=== PATIENT | female | born 1960 | race Caucasian/White ===

== ENCOUNTER 2021-10-07 19:30 | Outpatient (CLI) | payer BC | END 2021-10-07 19:31 | disposition home or self-care (01) | LOC: SLEEPLAB 19:30 | PROVIDERS: ATTEND Student in an Organized Health Care Education/Training Program | DX: G47.33 Obstructive sleep apnea (adult) (pediatric) (principal); F32.9 Major depressive disorder, single episode, unspecified; F41.9 Anxiety disorder, unspecified; I10 Essential (primary) hypertension; E66.9 Obesity, unspecified; R06.83 Snoring; G47.10 Hypersomnia, unspecified; G47.00 Insomnia, unspecified | CPT/HCPCS: 95810 ==

== ENCOUNTER 2021-11-11 12:37 | Outpatient (CLI) | payer BC | END 2021-11-11 12:38 | disposition home or self-care (01) | LOC: CT 12:37 | PROVIDERS: ATTEND Student in an Organized Health Care Education/Training Program | DX: N83.8 Other noninflammatory disorders of ovary, fallopian tube and broad ligament (principal); R19.00 Intra-abdominal and pelvic swelling, mass and lump, unspecified site | CPT/HCPCS: 72192 ==

== ENCOUNTER 2022-02-10 09:22 | Outpatient (CLI) | payer BC ==
[2022-02-10 10:43] LABS: #Eosinphils 0.2 10x3/uL (0.0-0.5); #Monocytes 0.4 10x3/uL (0.0-1.1); #Neutrophils 4.2 10x3/uL (1.5-8.4); %Basophils 0.6 % (0.0-2.0); %Eosinophils 2.5 % (0.0-6.0); %Lymphocytes 32.5 % (18.0-47.0); %Monocytes 5.3 % (0.0-10.0); Hemoglobin 12.8 g/dL (12.0-15.5); Mean Corpuscular HGB CONC 34.3 g/dL (32.0-36.0); Mean Corpuscular Hemoglobin 30.5 pg (27.0-33.0); Mean Corpuscular Volume 88.8 fl (81.6-98.3); Mean Platelet Volume 10.1 fl (7.4-10.4); Platelet Count 335 10x3/uL (150-450); White Blood Cell (WBC) Count 7.2 10x3/uL (3.5-10.5)
[2022-02-10 11:15] LABS: Anion Gap 11 mmol/L (10-20); BUN (Urea Nitrogen) 17 mg/dL (9.8-20.1); Calc. Creatinine Clearance 0 mL/min (70-130); Calcium 10.7 mg/dL (7.8-10.44); Carbon Dioxide 25 mmol/L (23-31); Chloride 107 mmol/L (98-107); Estimated GFR 91; Glucose 90 mg/dL (80-115); Potassium 4.8 mmol/L (3.5-5.1); Sodium 138 mmol/L (136-145)
== END 2022-02-10 09:23 | disposition home or self-care (01) ==
LOC: LABBT 09:22
PROVIDERS: ATTEND Specialist
DX: Z01.818 Encounter for other preprocedural examination (principal); C18.1 Malignant neoplasm of appendix
CPT/HCPCS: 80048; 85025; 93005; 93010

== ENCOUNTER 2022-02-11 06:25 | Day surgery (SDC) | payer BC ==
[2022-02-07 12:16] VITALS: BMI 35.4
[2022-02-11] MEDS ORDERED: Lidocaine 1% (PF) 30 ML VIAL ONE (06:45)
[2022-02-11] MEDS ORDERED: Bupivacaine/Epinephrine 0.25% 30 ML VIAL ONE (06:45)
[2022-02-11] MEDS ORDERED: Ketorolac Tromethamine 30 MG/ML VIAL ONE (06:46)
[2022-02-11] MEDS ORDERED: Acetaminophen 500 MG TAB ONE (06:46)
[2022-02-11] MEDS ORDERED: Propofol 500 MG/50 ML VIAL ONE (07:08)
[2022-02-11] MEDS ORDERED: Midazolam HCl 2 mg/2 ml Vial ONE (07:08)
[2022-02-11] MEDS ORDERED: fentaNYL PF 100 MCG/2 ML SYRINGE ONE (07:08)
[2022-02-11] MEDS ORDERED: CEFAZOLIN 2 GM VIAL ONE (08:18)
[2022-02-11] MEDS ORDERED: Sodium Chloride 0.9% 100 ML ONE (08:18)
[2022-02-11] MEDS ORDERED: diphenhydrAMINE 50 MG/ML VIAL ONE (08:23)
[2022-02-11] MEDS ORDERED: PROPOFOL 200 MG/20 ML VIAL ONE (08:23)
== END 2022-02-11 09:53 | disposition home or self-care (01) ==
LOC: SDC 06:25
PROVIDERS: ATTEND Specialist
PROC: 02HV33Z Insertion of Infusion Device into Superior Vena Cava, Percutaneous Approach (ICD-10-PCS; principal; 2022-02-11)
PROC: 0JH60WZ Insertion of Totally Implantable Vascular Access Device into Chest Subcutaneous Tissue and Fascia, Open Approach (ICD-10-PCS; principal; 2022-02-11)
DX: C18.1 Malignant neoplasm of appendix (principal); C79.61 Secondary malignant neoplasm of right ovary; I11.9 Hypertensive heart disease without heart failure; E78.00 Pure hypercholesterolemia, unspecified; M79.7 Fibromyalgia; Z87.891 Personal history of nicotine dependence; Z79.899 Other long term (current) drug therapy; Z88.0 Allergy status to penicillin; Z91.041 Radiographic dye allergy status; Z90.49 Acquired absence of other specified parts of digestive tract
CPT/HCPCS: 71045; C1788; J1200; J1642; J1885; J2001; J2250; J2704; J3490

== ENCOUNTER 2022-02-13 12:30 | Outpatient (CLI) | payer BC | END 2022-02-13 12:31 | disposition home or self-care (01) | LOC: PET 12:30 | PROVIDERS: ATTEND Internal Medicine Hematology & Oncology | DX: C18.1 Malignant neoplasm of appendix (principal) | CPT/HCPCS: 78815; A9552 ==

== ENCOUNTER 2022-05-12 10:29 | Outpatient (CLI) | payer BC | END 2022-05-12 10:30 | disposition home or self-care (01) | LOC: BICMAMMO 10:29 | PROVIDERS: ATTEND Student in an Organized Health Care Education/Training Program | DX: Z12.31 Encounter for screening mammogram for malignant neoplasm of breast (principal); R92.1 Mammographic calcification found on diagnostic imaging of breast; Z85.89 Personal history of malignant neoplasm of other organs and systems | CPT/HCPCS: 77063; 77067 ==

== ENCOUNTER 2022-05-12 11:45 | Outpatient (CLI) | payer BC ==
[~2022-05-12 11:45] MED LIST: GASTROGRAFIN 30 ML BOT ONE; Iopamidol 370 76% 100 ML VIAL ONE
[2022-05-12] MEDS ORDERED: diphenhydrAMINE 25 MG CAP ONE (12:24)
[2022-05-12] MEDS ORDERED: diphenhydrAMINE 50 MG CAP PO SCH (12:30)
== END 2022-05-12 11:46 | disposition home or self-care (01) ==
LOC: CT 11:45
PROVIDERS: ATTEND Internal Medicine Hematology & Oncology
DX: C18.1 Malignant neoplasm of appendix (principal)
CPT/HCPCS: 71260; 74177; 82565; J1642; Q9963; Q9967

== ENCOUNTER 2022-11-03 11:46 | Inpatient (IN) | payer BC ==
[2022-11-03 12:12] LABS: #Basophils 0.1 thou/uL (0.0-0.2); #Eosinphils 0.2 thou/uL (0.0-0.7); #Monocytes 0.9 thou/uL (0.11-0.59); #Neutrophils 8.7 thou/uL (1.40-6.50); %Basophils 0.7 % (0.0-1.0); %Eosinophils 1.4 % (0.0-10.0); %Monocytes 6.5 % (0.0-10.0); Hematocrit 34.9 % (36.0-47.0); Hemoglobin 11.3 g/dL (12.0-16.0); Mean Corpuscular HGB CONC 32.4 g/dL (32.0-36.0); Mean Corpuscular Hemoglobin 31.6 pg (27.0-31.0); Mean Corpuscular Volume 97.5 fl (78.0-98.0); Mean Platelet Volume 9.1 fL (7.4-10.4); Platelet Count 442 10x3/uL (130-400); RBC Distribution Width 12.9 % (11.5-14.5); Red Blood Cell (RBC) Count 3.58 mill/uL (4.20-5.40)
[2022-11-03 12:36] LABS: ALT (SGPT) 15 U/L (8-55); AST (SGOT) 15 U/L (5-34); Albumin 3.8 g/dL (3.4-4.8); Alkaline Phosphatase 107 U/L (40-110); Anion Gap 13 mmol/L (10-20); BUN (Urea Nitrogen) 14 mg/dL (9.8-20.1); Bilirubin, Total 0.3 mg/dL (0.2-1.2); Calc. Creatinine Clearance 0 mL/min (70-130); Carbon Dioxide 27 mmol/L (23-31); Chloride 98 mmol/L (98-107); Estimated GFR 83; Globulin 3.6 g/dL (2.4-3.5); Glucose 102 mg/dL (80-115); Potassium 4.1 mmol/L (3.5-5.1); Protein, Total 7.4 g/dL (5.8-8.1); Sodium 134 mmol/L (136-145)
[2022-11-03 12:41] LABS: Calcium 14.3 mg/dL (7.8-10.44)
[2022-11-03] MEDS ORDERED: traMADol HCl 50 MG TAB PO PRN (14:43)
[2022-11-03] MEDS ORDERED: Dexamethasone 4 mg/ml Vial SLOW IVP SCH (14:45)
[2022-11-03] MEDS ORDERED: Zoledronic Acid 4 MG in Sodium Chloride 0.9% 100 ML IVPB SCH (14:45)
[2022-11-03 17:21] VITALS: BMI 33.7
[2022-11-03] MEDS: Sodium Chloride 0.9% 1,000 ML IV SCH ×2 (18:37→23:34)
[2022-11-03] MEDS: Rosuvastatin 20 MG TAB PO SCH (21:04)
[2022-11-04 06:19] LABS: ALT (SGPT) 13 U/L (8-55); AST (SGOT) 14 U/L (5-34); Albumin 3.5 g/dL (3.4-4.8); Alkaline Phosphatase 96 U/L (40-110); Anion Gap 11 mmol/L (10-20); BUN (Urea Nitrogen) 17 mg/dL (9.8-20.1); Bilirubin, Total 0.2 mg/dL (0.2-1.2); Calc. Creatinine Clearance 95 mL/min (70-130); Carbon Dioxide 23 mmol/L (23-31); Chloride 105 mmol/L (98-107); Estimated GFR 82; Globulin 3.6 g/dL (2.4-3.5); Glucose 146 mg/dL (80-115); Potassium 4.3 mmol/L (3.5-5.1); Protein, Total 7.1 g/dL (5.8-8.1); Sodium 135 mmol/L (136-145)
[2022-11-04 06:23] LABS: Calcium 14.1 mg/dL (7.8-10.44)
[2022-11-04] MEDS: Lisinopril 5 MG TAB PO SCH (08:53)
[2022-11-04] MEDS: Sodium Chloride 0.9% 1,000 ML IV SCH ×3 (08:53→21:29)
[2022-11-04] MEDS: DULoxetine 30 MG CAP PO SCH (08:54)
[2022-11-04] MEDS: Calcitonin,Salmon,Synthetic 400 UNITS/2 ML SC SCH (09:26)
[2022-11-04] MEDS ORDERED: PHOS-NAK 1 PKT PACK PO SCH (17:00)
[2022-11-04 17:27] LABS: Anion Gap 11 mmol/L (10-20); BUN (Urea Nitrogen) 14 mg/dL (9.8-20.1); Calc. Creatinine Clearance 106 mL/min (70-130); Calcium 12.2 mg/dL (7.8-10.44); Carbon Dioxide 23 mmol/L (23-31); Chloride 105 mmol/L (98-107); Estimated GFR 93; Glucose 109 mg/dL (80-115); Potassium 3.9 mmol/L (3.5-5.1); Sodium 135 mmol/L (136-145)
[2022-11-04] MEDS: Rosuvastatin 20 MG TAB PO SCH (20:35)
[2022-11-04] MEDS ORDERED: Famotidine 20 MG TAB PO SCH (21:00)
[2022-11-04 22:31] LABS: Bacteria/HPF None Seen HPF (None Seen); Bilirubin Negative (Negative); Blood, Urine Negative (Negative); Clarity Turbid (Clear); Glucose, Urine (Dipstick) Normal (Negative); Ketone, Urine Negative (Negative); Leukocyte Negative Leu/uL (Negative); Nitrite Negative (Negative); Protein, Urine (Dipstick) Negative (Neg-Trace); RBC/HPF 0-3 HPF (0-3); Specific Gravity, Urine 1.009 (1.002-1.036); Squamous Epithelial 0-3 HPF (0-3); Urobilinogen Normal mg/dL (Less than 2); WBC/HPF 0-3 HPF (0-3); pH, Urine 7.5 (5.0-9.0)
[2022-11-05] MEDS: Sodium Chloride 0.9% 1,000 ML IV SCH (04:16)
[2022-11-05 06:32] LABS: Anion Gap 12 mmol/L (10-20); BUN (Urea Nitrogen) 10 mg/dL (9.8-20.1); Calc. Creatinine Clearance 117 mL/min (70-130); Calcium 10.2 mg/dL (7.8-10.44); Carbon Dioxide 19 mmol/L (23-31); Chloride 110 mmol/L (98-107); Estimated GFR 99; Glucose 91 mg/dL (80-115); Potassium 3.3 mmol/L (3.5-5.1); Sodium 138 mmol/L (136-145)
[2022-11-05 07:17] VITALS: TEMP 97.5
[2022-11-05] MEDS ORDERED: PHOS-NAK 1 PKT PACK PO SCH (08:15)
[2022-11-05] MEDS: Lisinopril 5 MG TAB PO SCH (08:39)
[2022-11-05] MEDS: DULoxetine 30 MG CAP PO SCH (08:39)
[2022-11-05] MEDS ORDERED: Cholecalciferol (Vitamin D3) 400 UNITS TAB PO SCH (09:00)
[2022-11-05] MEDS ORDERED: Polyethylene Glycol 3350 17 GM Packet PER TUBE SCH (09:00)
[2022-11-05] MEDS: Calcitonin,Salmon,Synthetic 400 UNITS/2 ML SC SCH (10:20)
[2022-11-05 11:34] VITALS: BP 164/77
== END 2022-11-05 12:05 | disposition home or self-care (01) | DRG 641 ==
LOC: ERS 11:46 → ERHOLD 13:53 → 2SW 17:12 → OBSVTOIN 11-04 08:14
PROVIDERS: ADMIT Internal Medicine; ATTEND Family Medicine
DX: E83.52 Hypercalcemia (principal); E78.5 Hyperlipidemia, unspecified; I10 Essential (primary) hypertension; M79.7 Fibromyalgia; Z90.49 Acquired absence of other specified parts of digestive tract; Z91.041 Radiographic dye allergy status; Z88.0 Allergy status to penicillin; Z79.899 Other long term (current) drug therapy; Z90.710 Acquired absence of both cervix and uterus; Z83.3 Family history of diabetes mellitus; Z82.49 Family history of ischemic heart disease and other diseases of the circulatory system; Z80.3 Family history of malignant neoplasm of breast; Z80.1 Family history of malignant neoplasm of trachea, bronchus and lung; Z87.891 Personal history of nicotine dependence
CPT/HCPCS: 36415; 80048; 80053; 81001; 82306; 82330; 82340; 82652; 83970; 84100; 84443; 85025; 93005; 96360; 96361; 96374; 96375; G0378; J0630; J1100; J1650; J3489; J3490; J7050

== ENCOUNTER 2022-12-03 09:28 | Outpatient (CLI) | payer BC ==
[2022-12-03] MEDS ORDERED: Iopamidol 370 76% 100 ML VIAL ONE (09:56)
== END 2022-12-03 09:29 | disposition home or self-care (01) ==
LOC: CT 09:28
PROVIDERS: ATTEND Student in an Organized Health Care Education/Training Program
DX: E21.3 Hyperparathyroidism, unspecified (principal); E07.9 Disorder of thyroid, unspecified
CPT/HCPCS: 70492; Q9967

== ENCOUNTER 2022-12-09 14:42 | Outpatient (CLI) | payer BC | END 2022-12-09 14:43 | disposition home or self-care (01) | LOC: BICMAMMO 14:42 | PROVIDERS: ATTEND Student in an Organized Health Care Education/Training Program | DX: Z13.820 Encounter for screening for osteoporosis (principal); E21.3 Hyperparathyroidism, unspecified; M85.89 Other specified disorders of bone density and structure, multiple sites | CPT/HCPCS: 77080 ==

== ENCOUNTER 2023-01-14 08:07 | Day surgery (SDC) | payer BC ==
[2023-01-13 11:32] VITALS: BMI 33.6
[2023-01-14] MEDS ORDERED: Lidocaine 1% (PF) 30 ML VIAL ONE (09:35)
[2023-01-14 09:37] LABS: Hematocrit 44.8 % (36.0-47.0)
[2023-01-14] MEDS ORDERED: fentaNYL PF 100 MCG/2 ML SYRINGE ONE (09:39)
[2023-01-14] MEDS ORDERED: Dexamethasone 20 MG/5 ML VIAL ONE (10:04)
[2023-01-14] MEDS ORDERED: PROPOFOL 200 MG/20 ML VIAL ONE (10:04)
[2023-01-14] MEDS ORDERED: PHENYLEPHRINE-NS 100 MCG/ML 10 ML SYRINGE ONE (10:04)
[2023-01-14] MEDS ORDERED: Lidocaine 1% PF 5 ML VIAL ONE (10:04)
[2023-01-14] MEDS ORDERED: Ondansetron PF 4 MG/2 ML Vial ONE (10:04)
[2023-01-14] MEDS ORDERED: Clindamycin/D5W 900 mg/50 ml Premix Bag ONE (10:25)
[2023-01-14] MEDS ORDERED: PROPOFOL 40 ML ONE (10:27)
[2023-01-14] MEDS ORDERED: Hydrocodone-Acetamin 15 ML UDCUP ONE (11:52)
== END 2023-01-14 13:20 | disposition home or self-care (01) ==
LOC: SDC 08:07
PROVIDERS: ATTEND Otolaryngology Plastic Surgery within the Head & Neck
PROC: 0GBR0ZZ Excision of Parathyroid Gland, Open Approach (ICD-10-PCS; principal; 2023-01-14)
DX: D53.1 Other megaloblastic anemias, not elsewhere classified (principal); E21.3 Hyperparathyroidism, unspecified; E04.1 Nontoxic single thyroid nodule; E78.00 Pure hypercholesterolemia, unspecified; I10 Essential (primary) hypertension; R49.8 Other voice and resonance disorders; Z91.041 Radiographic dye allergy status; Z88.0 Allergy status to penicillin; Z79.899 Other long term (current) drug therapy
CPT/HCPCS: 85014; 88305; 93005; 93010; C1713; J1100; J2001; J2405; J2704; J3490

== ENCOUNTER 2023-03-10 07:34 | Outpatient (CLI) | payer BC ==
[2023-03-10] MEDS ORDERED: diphenhydrAMINE 50 MG/ML VIAL IVP SCH (09:00)
[2023-03-10] MEDS ORDERED: Famotidine/PF 20 mg/2ml Vial SLOW IVP SCH (09:00)
[2023-03-10] MEDS ORDERED: Iopamidol 370 76% 100 ML VIAL ONE (11:11)
== END 2023-03-10 07:35 | disposition home or self-care (01) ==
LOC: CT 07:34
PROVIDERS: ATTEND Internal Medicine Hematology & Oncology
DX: C18.1 Malignant neoplasm of appendix (principal)
CPT/HCPCS: 74177; 82565; J1200; S0028

== ENCOUNTER 2024-03-07 10:22 | Outpatient (CLI) | payer BC | END 2024-03-07 10:23 | disposition home or self-care (01) | LOC: ULT 10:22 | PROVIDERS: ATTEND Otolaryngology Plastic Surgery within the Head & Neck | DX: E04.2 Nontoxic multinodular goiter (principal) | CPT/HCPCS: 76536 ==

== ENCOUNTER 2025-03-28 08:27 | Outpatient (CLI) | payer BC | END 2025-03-28 08:28 | disposition home or self-care (01) | LOC: CT 08:27 | PROVIDERS: ATTEND Internal Medicine Hematology & Oncology | DX: C18.1 Malignant neoplasm of appendix (principal); N28.9 Disorder of kidney and ureter, unspecified | CPT/HCPCS: 71250; 74177 ==